=== PATIENT | female | born 1985 | race Caucasian/White ===

== ENCOUNTER 2017-03-31 11:24 | Day surgery (SDC) | payer MEDICAID ==
[2017-03-29 12:18] VITALS: BMI 26.7
[~2017-03-31 11:24] MED LIST: Lidocaine 1%/Epinephrine 1:100000 30 ml vial IJ ONE
[2017-03-31] MEDS ORDERED: ceFAZolin IV 1 gm in Dextrose 1 GM/50 ML BAG IVPB ONE (15:11)
[2017-03-31] MEDS ORDERED: Bupivacaine HCl 0.25% PF (10 ml) Inj ONE (15:11)
[2017-03-31] MEDS ORDERED: ceFAZolin IV 2 gm in Dextrose 0 GM/0 ML BAG IVPB ONE (15:11)
[2017-03-31] MEDS ORDERED: Lactated Ringer's 1,000 ML IV ONE (15:26)
[2017-03-31] MEDS ORDERED: Midazolam 2 MG/2 ML VIAL ONE ×2 (15:32→15:33)
[2017-03-31] MEDS ORDERED: Oxycodone/Acetaminophen 5/325 mg Tab PO PRN (16:03)
--- NOTE | 2017-03-31 16:05 | PCM.SURG1 ---
Surgeon's Initial Post Op Note - Surgeon's Notes Surgeon: Dr. Wolf Multimedia Project Manager: Dr. Mckeon PGY2 Type of Anesthesia: IV Sedation Pre-Operative Diagnosis: Left axillary sebaceous cyst Operative Findings: see dictation Post-Operative Diagnosis: same Operation Performed: left axillary sebaceous cyst excision Specimen/Specimens Removed: sebaceous cyst Estimated Blood Loss: EBL {In ML}: 5 Blood Products Given: N/A Post-Op Condition: Good Date of Surgery/Procedure: 03/31/17 Time of Surgery/Procedure: 15:25
[2017-03-31 17:02] VITALS: O2SAT 100
[2017-03-31 17:48] VITALS: BP 113/85; PULSE 65; RESP 20; TEMP 97.8
--- NOTE | 2017-04-02 19:59 | OP ---
PROCEDURE DATE: 03/31/2017 PREOPERATIVE DIAGNOSIS: Sebaceous cyst of the left axilla, approximately 2 x 2 cm size. POSTOPERATIVE DIAGNOSIS: Sebaceous cyst of the left axilla, approximately 2 x 2 cm size. PROCEDURE DONE: 1. Excision of sebaceous cyst of the left axilla, 2 x 3 cm size. 2. Layered closure of the wound, 3 x 2 cm size. SURGEON: Procedure was done by Berny horner MD. PHYSICAL TRAINER: Sindi Mckeon DO, PGY-2 resident. TYPE OF ANESTHESIA: Local anesthesia plus sedation. ESTIMATED BLOOD LOSS: Around 10 mL. DRAIN: None. PATHOLOGY: Sebaceous cyst was sent for the pathology. COMPLICATIONS: None. INTRAOPERATIE FINDINGS: The patient had 2 x 3 cm sebaceous cyst of the left axilla. DESCRIPTION OF PROCEDURE: On intraoperative steps, this is a 31-year-old female who was diagnosed with sebaceous cyst of the left axilla. The patient was brought to the OR, placed supine on the operating table. After induction of the sedation, the left axilla was prepped and draped. Elliptical incision was made after incising skin and subcutaneous tissue. The upper and lower flaps were created. The dissection was carried down into the deep subcutaneous tissue and sebaceous cyst was completely excised and it was sent off the table for the pathology. The wound was irrigated and the wound was closed in multiple layers. The deeper subcu with a 2-0 Vicryl and another layer of subcu with 3-0 Vicryl. Skin with a 4-0 Monocryl and dry sterile dressing was applied. The patient tolerated the procedure well. Count of the instrument and gauze was correct. There was no apparent complication. Berny Wolf MD
== END 2017-03-31 17:20 | disposition home or self-care (01) ==
LOC: C.SDS 11:24
PROVIDERS: ATTEND Surgery Surgical Critical Care
DX: L72.3 Sebaceous cyst (principal)
CPT/HCPCS: 11403; 12032; J0690; J2250; J2405; J3010; J7120